=== PATIENT | female | born 1960 | race Caucasian/White ===

== ENCOUNTER → 2017-02-06 | Outpatient (CLI) | payer OTHER ==
[2017-01-14 23:00] VITALS: BP 131/71
--- NOTE | 2017-02-06 16:01 | RAD ---
Bone densitometry scan, 02/06/2017: History: Postmenopausal screening The lumbar spine and right hip were examined utilizing a DEXA technique. The bone mineral density of the lumbar spine as measured from the L1-L4 levels is 1.20 g/sq cm. This yields a T score of 0.2 which is in the normal range. The total T score at the right hip is -0.9 which is also in the normal range. IMPRESSION: Normal bone mineral density measurements.
== END | disposition home or self-care (01) ==
LOC: DXRAD 14:58
PROVIDERS: ATTEND Family Medicine
DX: Z12.31 Encounter for screening mammogram for malignant neoplasm of breast (principal); Z01.419 Encounter for gynecological examination (general) (routine) without abnormal findings; Z78.0 Asymptomatic menopausal state
CPT/HCPCS: 77080; G0202; 77067

== ENCOUNTER 2017-03-23 06:44 | Emergency (ER) | payer OTHER ==
[~2017-03-23] VITALS: Ht 157.5 cm; Wt 115.7 kg
[2017-03-23] MEDS ORDERED: IV NORMAL SALINE 1,000ML 1,000 ML IV SCH (07:26)
[2017-03-23] MEDS ORDERED: FENTANYL PF 100 MCG/2 ML VIAL. IV PRN (07:30)
--- NOTE | 2017-03-23 07:36 | ED.ADGEN ---
Past History Past Medical History: Depression Past Surgical History: Cholecystectomy, Gastric Bypass, Hysterectomy Smoking: Non-smoker Alcohol Use: Occasionally Drug Use: None Adult General HPI HPI Patient is a 56-year-old woman, with history of gastric bypass surgery, cholecystectomy, hysterectomy, depression, hypertension, who presents to the emergency department with a complaint of intermittent left abdominal and left flank pain over the past 4-5 weeks. Patient states she first noted the pain about 4-5 weeks ago, when she rolled over in bed, states that a searing pain was noted from her left flank radiating down to her left upper and lower abdomen. She states last for about 10 minutes before subsiding. She states that she has intermittent pain since them, sometimes associated with motion sometimes not. She states that beginning last night, the pain has been more persistent, and is now more of a throbbing ache with occasional episodes of sharp shooting pain the do radiate from the flank into the abdomen, associated with mild nausea. Denies any vomiting, denies any similar symptoms previously, any injuries. Patient states her last bowel movement was yesterday and was normal. She occasionally) constipation. She denies any weakness numbness or tingling, any urinary complaints, any discharge or drainage, took a hydrocodone last night without relief. Review of Systems Review of Systems Constitutional: Denies fever or chills [] Eyes: Denies change in visual acuity, redness, or eye pain [] HENT: Denies nasal congestion or sore throat [] Respiratory: Denies cough or shortness of breath [] Cardiovascular: No additional information not addressed in HPI [] GI: Left abdominal pain associated with left flank pain, nausea, no vomiting, bloody stools or diarrhea. : Denies dysuria or hematuria [] Musculoskeletal: Denies back pain or joint pain left flank pain and abdominal pain. Integument: Denies rash or skin lesions [] Neurologic: Denies headache, focal weakness or sensory changes [] Endocrine: Denies polyuria or polydipsia [] Current Medications Current Medications Current Medications Medications (Trade) Dose Ordered Sig/Cameron Start Time Stop Time Status Last Admin Dose Admin Fentanyl Citrate 25 mcg 25 mcg PRN Q15MIN PRN 03/23/17 07:30 03/24/17 07:29 03/23/17 07:37 25 MCG Ketorolac Tromethamine (Toradol) 10 mg 1X ONCE 03/23/17 09:10 03/23/17 09:11 03/23/17 08:47 10 MG Ondansetron HCl (Zofran) 4 mg 1X ONCE 03/23/17 07:55 03/23/17 07:56 DC 03/23/17 07:37 4 MG Sodium Chloride (Iv Sodium Chloride 0.9% 1,000ml) 1,000 ml @ 1,000 mls/hr Q1H 03/23/17 07:26 03/23/17 08:25 DC 03/23/17 07:26 1,000 MLS/HR Allergies Allergies Allergies Coded Allergies Type Severity Reaction Last Updated Verified No Known Drug Allergies 06/06/14 No Physical Exam Physical Exam Constitutional: Well developed, well nourished, no acute distress, non-toxic appearance. [] HENT: Normocephalic, atraumatic, bilateral external ears normal, oropharynx moist, no oral exudates, nose normal. [] Eyes: PERRLA, EOMI, conjunctiva normal, no discharge. [] Neck: Normal range of motion, no tenderness, supple, no stridor. [] Cardiovascular:Heart rate regular rhythm, no murmur, S1, S2, no rubs or gallops. [] Lungs & Thorax: Bilateral breath sounds clear to auscultation, no wheezing, rhonchi, rales. No chest or crepitus or tenderness. [] Abdomen: Bowel sounds normal, soft, tenderness palpation in the left upper and middle abdomen, patient noted to have well-healed surgical incisions from laboratory procedures, no rebound or rigidity, no guarding, no masses, no pulsatile masses. [] Skin: Warm, dry, no erythema, no rash. [] Back: No tenderness, no CVA tenderness. [] Extremities: No tenderness, no cyanosis, no clubbing, ROM intact, no edema. [] Neurologic: Alert and oriented X 3, normal motor function, normal sensory function, no focal deficits noted. [] Psychologic: Affect normal, judgement normal, mood normal. [] Current Patient Data Vital Signs Vital Signs Date Time Temp Pulse Resp B/P Pulse Ox O2 Delivery O2 Flow Rate FiO2 03/23/17 08:56 74 14 132/80 94 Room Air 03/23/17 06:50 97.7 Lab Results Laboratory Tests Test 03/23/17 07:31 White Blood Count 8.0x10^3/uL (4.0-11.0) Red Blood Count 4.53x10^6/uL (3.50-5.40) Hemoglobin 14.5g/dL (12.0-15.5) Hematocrit 42.8% (36.0-47.0) Mean Corpuscular Volume 94fL (79-100) Mean Corpuscular Hemoglobin 32pg (25-35) Mean Corpuscular Hemoglobin Concent 34g/dL (31-37) Red Cell Distribution Width 13.0% (11.5-14.5) Platelet Count 244x10^3/uL (140-400) Neutrophils (%) (Auto) 61% (31-73) Lymphocytes (%) (Auto) 30% (24-48) Monocytes (%) (Auto) 7% (0-9) Eosinophils (%) (Auto) 2% (0-3) Basophils (%) (Auto) 1% (0-3) Neutrophils # (Auto) 4.8x10^3uL (1.8-7.7) Lymphocytes # (Auto) 2.4x10^3/uL (1.0-4.8) Monocytes # (Auto) 0.5x10^3/uL (0.0-1.1) Eosinophils # (Auto) 0.1x10^3/uL (0.0-0.7) Basophils # (Auto) 0.1x10^3/uL (0.0-0.2) Urine Collection Type Unknown Urine Color Yellow Urine Clarity Clear Urine pH 7.0 Urine Specific [place] 1.015 Urine Protein Neg (NEG-TRACE) Urine Glucose (UA) Negmg/dL (NEG) Urine Ketones (Stick) Negmg/dL (NEG) Urine Blood Neg (NEG) Urine Nitrite Neg (NEG) Urine Bilirubin Neg (NEG) Urine Urobilinogen Dipstick 1mg/dL (0.2 mg/dL) Urine Leukocyte Esterase Neg (NEG) Urine RBC 0/HPF (0-2) Urine WBC Rare/HPF (0-4) Urine Squamous Epithelial Cells Many/LPF Urine Bacteria Few/HPF (0-FEW) Urine Mucus Slight/LPF Sodium Level 141mmol/L (136-145) Potassium Level 3.7mmol/L (3.5-5.1) Chloride Level 102mmol/L (98-107) Carbon Dioxide Level 31mmol/L (21-32) Anion Gap 8 (6-14) Blood Urea Nitrogen 15mg/dL (7-20) Creatinine 0.8mg/dL (0.6-1.0) Estimated GFR (Cockcroft-Gault) 74.7 BUN/Creatinine Ratio 19 (6-20) Glucose Level 104mg/dL (70-99) H Calcium Level 8.8mg/dL (8.5-10.1) Total Bilirubin 0.6mg/dL (0.2-1.0) Aspartate Amino Transferase (AST) 24U/L (15-37) Alanine Aminotransferase (ALT) 36U/L (14-59) Alkaline Phosphatase 82U/L (46-116) Total Protein 7.7g/dL (6.4-8.2) Albumin 3.6g/dL (3.4-5.0) Albumin/Globulin Ratio 0.9 (1.0-1.7) L Lipase 139U/L (73-393) EKG EKG [] Radiology/Procedures Radiology/Procedures [] [address] [id number] IMAGING REPORT Signed PATIENT: DARIA WATERS ACCOUNT: [id number] : 1960 LOCATION: ER AGE: 56 SEX: F EXAM STATUS: REG ER ORD. PHYSICIAN: JOSE ALBERTO HOYOS DO REASON: Labd/L flank pain PROCEDURE: CT ABDOMEN PELVIS WO CONTRAST CT study of the abdomen and pelvis without contrast History: Left flank pain for one day. Technique: Noncontrast helical CT scanning of the abdomen and pelvis was performed. Without contrast, the sensitivity to detect organ pathology and GI tract pathology is decreased. PQRS Compliance Statement: One or more of the following individualized dose reduction techniques were utilized for this examination: 1. Automated exposure control 2. Adjustment of the mA and/or kV according to patient size 3. Use of iterative reconstruction technique Comparison: May 30, 2015. Findings: The liver and spleen and pancreas are homogeneous in appearance on this noncontrast study. The gallbladder is surgically absent. No extra hepatic biliary ductal dilatation is seen. No adrenal mass is evident. No hydronephrosis or hydroureter is seen. A lower pole left renal cyst is seen. A nonobstructing punctate stone of the lower pole of the left kidney is seen. No hydronephrosis or hydroureter is seen on either side. Urinary bladder wall is smooth. The uterus is surgically absent. No focal aneurysmal dilatation of the abdominal aorta is seen. No enlarged abdominal or pelvic lymphadenopathy is seen. The appendix is normal. The terminal ileum is unremarkable. No obstructive bowel pattern is seen. Postsurgical changes of the stomach are seen. The stomach is not distended. No free air or free fluid or inflammatory change is seen. No lung base consolidation is seen. No osteolytic process is seen. IMPRESSION: Nonobstructing stone of the lower pole of left kidney. No hydronephrosis or hydroureter or ureteral stone is evident. No acute abnormality of the abdomen or pelvis is seen. DICTATED AND SIGNED BY: MOISE TAY MD DATE: 03/23/17 0811 CC: LAMONT IZAGUIRRE DO; JOSE ALBERTO HOYOS DO ~ Course & Med Decision Making Course & Med Decision Making Pertinent Labs and Imaging studies reviewed. (See chart for details) After discussion with patient at bedside, will obtain laboratory studies, including urinalysis, CT imaging of the abdomen to further elucidate her symptoms, patient receive antiemetics, pain medication and IV fluids. Delay in obtaining imaging laboratory studies secondary to technical difficulties. Laboratory studies do not reveal any evidence of acutely concerning findings, CT revealed a nonobstructing small stone in the lower pole of left kidney. I did discuss this finding with Dr. Parisi of urology, he states based on the small size of the stone, and location he does not believe that it is likely causing any symptoms for the patient currently. There is potential that the stone could move, or growing the future which can be considered as well. I did discuss with the patient, she is resting more comfortably after receiving pain medication including Toradol in the emergency department. Nausea is resolved. I discussed the CT findings with her, and the fact we don't believe the stone is currently causing any issues, although it would be a potential problem future if it does move. Discussed use of muscle relaxants and anti-inflammatories to treat potential musculoskeletal pain, and follow-up with her primary care provider for additional evaluation as needed along with continuation of her current medications. Patient voiced understanding and agreement with this plan. Instructed to stay well-hydrated, given instructions on dietary precautions for renal calculi, concerning symptoms that prompt return to the emergency department, and prescriptions for Flexeril and naproxen, along with Zofran. Patient discharged home in stable condition with plan as above, with friend to provide transportation. Final Impression Final Impression [] Problems: (1) Kidney stones (2) Abdominal pain Qualifiers: Qualified Code: R10.12 - Left upper quadrant pain Dragon Disclaimer Dragon Disclaimer This electronic medical record was generated, in whole or in part, using a voice recognition dictation system. Departure Disposition: 01 HOME, SELF-CARE Diagnosis: abdominal pain, left flank pain, musculoskeletal Condition: IMPROVED JOSE ALBERTO HOYOS DO Mar 23, 2017 07:36
[2017-03-23 07:44] LABS: BASO # 0.1 x10^3/uL (0.0-0.2); BASO % 1 % (0-3); EOS # 0.1 x10^3/uL (0.0-0.7); EOS % 2 % (0-3); HEMATOCRIT 42.8 % (36.0-47.0); HEMOGLOBIN 14.5 g/dL (12.0-15.5); LYMPH # 2.4 x10^3/uL (1.0-4.8); LYMPH % 30 % (24-48); MEAN CORPUSCULAR HEMOGLOBIN 32 pg (25-35); MEAN CORPUSCULAR HGB CONC 34 g/dL (31-37); MEAN CORPUSCULAR VOLUME 94 fL (79-100); MONO # 0.5 x10^3/uL (0.0-1.1); MONO % 7 % (0-9); NEUT # 4.8 x10^3uL (1.8-7.7); NEUT % 61 % (31-73); PLATELET COUNT 244 x10^3/uL (140-400); RED BLOOD COUNT 4.53 x10^6/uL (3.50-5.40)
[2017-03-23 07:51] LABS: BACTERIA,URINE FEW /HPF (0-FEW); BILIRUBIN,URINE NEG (NEG); CLARITY,URINE CLEAR; COLOR,URINE YELLOW; GLUCOSE,URINE NEG (NEG); NITRITE,URINE NEG (NEG); RBC,URINE 0 /HPF (0-2); SQUAMOUS EPITHELIAL CELL,UR MANY /LPF; UROBILINOGEN,URINE 1 mg/dL (0.2 mg/dL); WBC,URINE RARE /HPF (0-4)
[2017-03-23 07:55] LABS: ALBUMIN 3.6 g/dL (3.4-5.0); ALBUMIN/GLOBULIN RATIO 0.9 (1.0-1.7); CALCIUM 8.8 mg/dL (8.5-10.1); CREATININE 0.8 mg/dL (0.6-1.0); GFR 74.7; POTASSIUM 3.7 mmol/L (3.5-5.1); TOTAL BILIRUBIN 0.6 mg/dL (0.2-1.0); TOTAL PROTEIN 7.7 g/dL (6.4-8.2)
[2017-03-23] MEDS ORDERED: ONDANSETRON PF 4 MG/2 ML VIAL. IV ONE (07:55)
--- NOTE | 2017-03-23 08:25 | RAD ---
CT study of the abdomen and pelvis without contrast History: Left flank pain for one day. Technique: Noncontrast helical CT scanning of the abdomen and pelvis was performed. Without contrast, the sensitivity to detect organ pathology and GI tract pathology is decreased. PQRS Compliance Statement: One or more of the following individualized dose reduction techniques were utilized for this examination: 1. Automated exposure control 2. Adjustment of the mA and/or kV according to patient size 3. Use of iterative reconstruction technique Comparison: May 30, 2015. Findings: The liver and spleen and pancreas are homogeneous in appearance on this noncontrast study. The gallbladder is surgically absent. No extra hepatic biliary ductal dilatation is seen. No adrenal mass is evident. No hydronephrosis or hydroureter is seen. A lower pole left renal cyst is seen. A nonobstructing punctate stone of the lower pole of the left kidney is seen. No hydronephrosis or hydroureter is seen on either side. Urinary bladder wall is smooth. The uterus is surgically absent. No focal aneurysmal dilatation of the abdominal aorta is seen. No enlarged abdominal or pelvic lymphadenopathy is seen. The appendix is normal. The terminal ileum is unremarkable. No obstructive bowel pattern is seen. Postsurgical changes of the stomach are seen. The stomach is not distended. No free air or free fluid or inflammatory change is seen. No lung base consolidation is seen. No osteolytic process is seen. IMPRESSION: Nonobstructing stone of the lower pole of left kidney. No hydronephrosis or hydroureter or ureteral stone is evident. No acute abnormality of the abdomen or pelvis is seen.
[2017-03-23 08:56] VITALS: BP 132/80
[2017-03-23] MEDS ORDERED: KETOROLAC 15 MG/ML VIAL. IV ONE (09:10)
== END 2017-03-23 09:05 | disposition home or self-care (01) ==
LOC: ER 06:54
DX: N20.0 Calculus of kidney (principal); R10.12 Left upper quadrant pain; I10 Essential (primary) hypertension; Z98.84 Bariatric surgery status; Z90.49 Acquired absence of other specified parts of digestive tract; Z90.710 Acquired absence of both cervix and uterus
CPT/HCPCS: 36415; 74176; 80053; 81001; 83690; 85027; 96361; 96374; 96375; 99285; J1885; J2405; J3010; J7030

== ENCOUNTER 2017-04-10 05:54 | Emergency (ER) | payer OTHER ==
[~2017-04-10] VITALS: Ht 157.5 cm; Wt 111.1 kg
--- NOTE | 2017-04-10 06:28 | ED.ADGEN ---
Past History Past Medical History: Arthritis, Hypertension Past Surgical History: Cholecystectomy, Gastric Bypass, Hysterectomy, Tonsillectomy Smoking: Non-smoker Alcohol Use: Rarely Drug Use: None Adult General Chief Complaint Chief Complaint Dental pain and facial swelling HPI HPI Patient is a 56-year-old female who presents with right posterior molar pain for 1 week currently on clindamycin 1 day #3 here presents with right mandible facial swelling tenderness and redness. Swelling facial swelling began yesterday and has gradually progressed. She reports fever 101.2 overnight and reports feeling dizzy and dehydrated this morning. She denies trismus, dysphonia , dysphagia and drooling. She denies other symptoms or complaints. Patient is scheduled to see her dentist in 1 week. Review of Systems Review of Systems ROS as per HPI Current Medications Current Medications Current Medications Medications (Trade) Dose Ordered Sig/Cameron Start Time Stop Time Status Last Admin Dose Admin Sodium Chloride 1,000 ml @ 1,000 mls/hr 1X ONCE 04/10/17 06:30 04/10/17 07:29 UNV Allergies Allergies Allergies Coded Allergies Type Severity Reaction Last Updated Verified No Known Drug Allergies 06/06/14 No Physical Exam Physical Exam Constitutional: Well developed, well nourished, no acute distress, non-toxic appearance. HENT: Normocephalic, right mandible facial swelling, bilateral external ears normal, oropharynx moist, fractured right posterior molar with gingival swelling , nose normal. Eyes: PERRLA, EOMI. Neck: Normal range of motion. Cardiovascular:Heart rate regular rhythm, no murmur. Lungs & Thorax: Bilateral breath sounds clear to auscultation. Abdomen: Bowel sounds normal, soft, no tenderness. Current Patient Data Vital Signs Vital Signs Date Time Temp Pulse Resp B/P (MAP) Pulse Ox O2 Delivery O2 Flow Rate FiO2 04/10/17 05:55 99.4 104 20 96 Room Air EKG EKG [] Radiology/Procedures Radiology/Procedures [] Course & Med Decision Making Course & Med Decision Making Pertinent Labs and Imaging studies reviewed. (See chart for details) [] Final Impression Final Impression [] Problems: Dragon Disclaimer Dragon Disclaimer This electronic medical record was generated, in whole or in part, using a voice recognition dictation system. ROVERTO SMYTH DO April 10, 2017 06:28
[2017-04-10] MEDS ORDERED: IV NORMAL SALINE 1,000ML 1,000 ML IV ONE (06:45)
[2017-04-10 07:12] LABS: BASO % 1 % (0-3); EOS # 0.1 x10^3/uL (0.0-0.7); EOS % 2 % (0-3); HEMATOCRIT 39.7 % (36.0-47.0); HEMOGLOBIN 13.7 g/dL (12.0-15.5); LYMPH # 0.8 x10^3/uL (1.0-4.8); LYMPH % 15 % (24-48); MEAN CORPUSCULAR HEMOGLOBIN 32 pg (25-35); MEAN CORPUSCULAR HGB CONC 35 g/dL (31-37); MEAN CORPUSCULAR VOLUME 93 fL (79-100); MONO # 0.4 x10^3/uL (0.0-1.1); MONO % 8 % (0-9); NEUT % 75 % (31-73); PLATELET COUNT 167 x10^3/uL (140-400); RED BLOOD COUNT 4.29 x10^6/uL (3.50-5.40); RED CELL DISTRIBUTION WIDTH 13.1 % (11.5-14.5); WHITE BLOOD COUNT 5.3 x10^3/uL (4.0-11.0)
[2017-04-10 07:23] LABS: ALBUMIN 3.2 g/dL (3.4-5.0); ALBUMIN/GLOBULIN RATIO 0.8 (1.0-1.7); C REACTIVE PROTEIN 89.6 mg/L (0-3.3); CALCIUM 8.6 mg/dL (8.5-10.1); CREATININE 0.8 mg/dL (0.6-1.0); GFR 74.7; POTASSIUM 3.1 mmol/L (3.5-5.1); TOTAL BILIRUBIN 0.6 mg/dL (0.2-1.0); TOTAL PROTEIN 7.3 g/dL (6.4-8.2)
[2017-04-10] MEDS ORDERED: DEXAMETHASONE SOD PHOS 10 MG/ML VIAL IV ONE (08:00)
[2017-04-10 09:00] VITALS: BP 119/76
== END 2017-04-10 09:00 | disposition home or self-care (01) ==
LOC: ER 05:54
DX: K08.89 Other specified disorders of teeth and supporting structures (principal); R22.0 Localized swelling, mass and lump, head; R50.9 Fever, unspecified; R42 Dizziness and giddiness; I10 Essential (primary) hypertension; M19.90 Unspecified osteoarthritis, unspecified site
CPT/HCPCS: 36415; 80053; 85027; 86140; 87040; 96361; 96374; 99284; J1100; J7030

== ENCOUNTER 2019-06-05 10:24 | Emergency (ER) | payer OTHER ==
[~2019-06-05] VITALS: Ht 157.5 cm; Wt 105.8 kg
[2019-06-05 10:24] VITALS: BP 135/75
[2019-06-05] MEDS ORDERED: oxyCODONE/APAP 10/325 1 TAB TABLET PO ONE (10:45)
[2019-06-05] MEDS ORDERED: ONDANSETRON ODT 4 MG TAB.RAPDIS PO ONE ×2 (10:45→11:30)
--- NOTE | 2019-06-05 11:11 | PHYS DOC ---
Past History Past Medical History: Arthritis, Hypertension Past Surgical History: Cholecystectomy, Gastric Bypass, Hysterectomy, Tonsillectomy Smoking: Non-smoker Alcohol Use: Rarely Drug Use: None Adult General Chief Complaint Chief Complaint: SHOULDER INJURY HPI HPI Patient is a 58-year-old female who presents with injury to her right shoulder chest that she sustained last night. She states that she was walking up steps last night outside when she tripped and fell. She states that she had taken some ibuprofen initially for the pain which had helped a little bit but now pain is about an 8 out of 10. She states that she has significantly reduced range of motion due to reported pain.[] Review of Systems Review of Systems Constitutional: Denies fever or chills [] Respiratory: Denies cough or shortness of breath [] Cardiovascular: No additional information not addressed in HPI [] Musculoskeletal: Positive right shoulder pain [] Integument: Denies rash or skin lesions [] Neurologic: Denies headache, focal weakness or sensory changes [] All other systems were reviewed and found to be within normal limits, except as documented in this note. Current Medications Current Medications Current Medications Medications (Trade) Dose Ordered Sig/Cameron Start Time Stop Time Status Last Admin Dose Admin Fentanyl Citrate (Fentanyl 2ml Vial) 75 mcg 1X ONCE 06/05/19 10:45 06/05/19 10:46 DC 06/05/19 10:43 75 MCG Ondansetron HCl (Zofran Odt) 4 mg 1X ONCE 06/05/19 10:45 06/05/19 10:46 DC 06/05/19 10:43 4 MG Oxycodone/ Acetaminophen (Percocet 10/325) 1 tab 1X ONCE 06/05/19 10:45 06/05/19 10:46 DC 06/05/19 10:43 1 TAB Allergies Allergies Allergies Coded Allergies Type Severity Reaction Last Updated Verified No Known Drug Allergies 06/06/14 No Physical Exam Physical Exam Constitutional: Well developed, well nourished, in mild distress, non-toxic appearance. [] HENT: Normocephalic, atraumatic, bilateral external ears normal, oropharynx moist, no oral exudates, nose normal. [] Eyes: PERRLA, EOMI, conjunctiva normal, no discharge. [] Neck: Normal range of motion, no tenderness, supple, no stridor. [] Cardiovascular: Regular rate and rhythm [] Lungs & Thorax: Bilateral breath sounds clear to auscultation [] Extremities: Right shoulder demonstrates fairly diffuse tenderness with significantly reduced range of motion due to pain. [] Neurologic: Alert and oriented X 3, no focal deficits noted. [] EKG EKG [] Radiology/Procedures Radiology/Procedures [] Impressions: PROCEDURE: SHOULDER 2+V RIGHT 4 view right shoulder study Clinical indications: Fall and right shoulder pain. FINDINGS: No acute fracture or dislocation or lytic process is evident. No AC joint separation is seen. There is mild degenerative spurring of the right AC joint. IMPRESSION: No acute fracture. Electronically signed by: Ino Esteban MD (06/05/2019 11:25 AM) [facility] Course & Med Decision Making Course & Med Decision Making Pertinent Labs and Imaging studies reviewed. (See chart for details) [] Dragon Disclaimer Dragon Disclaimer This electronic medical record was generated, in whole or in part, using a voice recognition dictation system. Departure Departure: Impression: Primary Impression: Sprain of shoulder, right Disposition: 01 HOME, SELF-CARE Condition: STABLE Referrals: LAMONT IZAGUIRRE DO (PCP) Patient Instructions: Shoulder Sprain Scripts Diclofenac Sodium (DICLOFENAC SODIUM) 50 Mg Tablet.dr 1 TAB PO BID PRN for PAIN, #20 TAB Prov: XIOMARA ESPINOSA Jr. DO 06/05/19 Acetaminophen With Codeine (TYLENOL WITH CODEINE #3 TABLET) 1 Each Tablet 1 TAB PO Q4-6HRS PRN for PAIN, #15 TAB Prov: XIOMARA ESPINOSA Jr. DO 06/05/19 Problem Qualifiers Primary Impression: Sprain of shoulder, right Encounter type: initial encounter Shoulder sprain type: unspecified sprain Qualified Codes: S43.401A - Unspecified sprain of right shoulder joint, initial encounter XIOMARA ESPINOSA Jr. DO Jun 05, 2019 11:11
--- NOTE | 2019-06-05 11:28 | RAD ---
4 view right shoulder study Clinical indications: Fall and right shoulder pain. FINDINGS: No acute fracture or dislocation or lytic process is evident. No AC joint separation is seen. There is mild degenerative spurring of the right AC joint. IMPRESSION: No acute fracture. Electronically signed by: Ino Esteban MD (06/05/2019 11:25 AM) [facility]
[2019-06-05] MEDS ORDERED: ACET-704 PO (11:44)
[2019-06-05] MEDS ORDERED: DICL50TA4 PO (11:44)
[2019-06-05] MEDS ORDERED: IOHEXOL 300 MG/ML 75 ML VIAL. IV ONE ×2 (12:15→15:15)
== END 2019-06-05 12:00 | disposition home or self-care (01) ==
LOC: ER 10:24
DX: S43.401A Unspecified sprain of right shoulder joint, initial encounter (principal); M19.90 Unspecified osteoarthritis, unspecified site; I10 Essential (primary) hypertension; Z98.84 Bariatric surgery status; W01.0XXA Fall on same level from slipping, tripping and stumbling without subsequent striking against object, initial encounter; Y93.01 Activity, walking, marching and hiking; Y92.89 Other specified places as the place of occurrence of the external cause; Y99.8 Other external cause status
CPT/HCPCS: 73030; 96372; 99284; J3010; Q0162